=== PATIENT | male | born 2005 | race Caucasian/White ===

== ENCOUNTER 2024-03-03 12:14 | Emergency (ER) | payer OTHER, SELFPAY ==
[2024-03-03 12:21] VITALS: BP 142/86; PULSE 95; RESP 19; TEMP 36.6; O2SAT 98; BMI 37.4
--- NOTE | 2024-03-03 12:21 | ED_ITS ---
HPI - Extremity Injury (Lower) General Chief Complaint: Extremity Injury, Lower Stated Complaint: L toe infected? Time Seen by Provider: 03/03/24 12:26 Source: patient Mode of arrival: ambulatory Limitations: no limitations History of Present Illness HPI Narrative: Patient is a 18-year-old male who presents emergency department for intermittent swelling and bleeding to L great toe over past few months. Reports frequent stubbing of the toe accidently. Denies hx DM. Related Data Previous Rx's ?Medication ?Instructions ?Recorded cephalexin 500 mg capsule 500 mg PO QID #28 caps 03/03/24 Allergies Allergy/AdvReac Type Severity Reaction Status Date / Time No Known Allergies Allergy Verified 03/03/24 12:22 Review of Systems Review of Systems: Yes all other systems are reviewed and are negative [facility] Past Medical History Attestation statement: The following information was validated with the patient. Source: old records reviewed Social History Social History Advance Directives: No Advance Directives Information Provided: Yes Physical Exam Vital Signs: Vital Signs: Last Vital Signs Temp 98 F 03/03/24 12:21 Pulse 95 03/03/24 12:21 Resp 19 03/03/24 12:21 BP 142/86 H 03/03/24 12:21 Pulse Ox 98 03/03/24 12:21 O2 Del Method Room Air 03/03/24 12:21 BMI result Body Mass Index 37.4 Appearance: Alert.?Oriented to person, place and time. No acute distress.?Normal affect. Neck: Normal inspection.? Neck supple.?? CVS: Heart sounds normal. Normal heart rate and rhythm.? Pulses normal.?? Respiratory: No respiratory distress.? Lung sounds clear to auscultation bilaterally??? Skin: Skin warm and dry.? Normal skin color.? Extremities: No lower extremity edema.? No calf ttp. L great toe with mild erythema along the distal medial nail fold without abscess Neuro: Moves all extremities spontaneously. Sensation intact bilaterally. Ambulates with normal steady gait. Medical Decision Making Medical Decision Making MDM Narrative: Patient is a 18-year-old male who presents emergency department for evaluation of intermittent erythema and swelling to the left great toe. Expressed concern for possible ingrown nail. On physical examination does not appear to have ingrown nail, rather paronychia without any acute drainable abscess. Given its recurrence, will trial course of antibiotics, and advised patient to consider use of steel toe shoes especially while at work to prevent frequent stabbing injury which can result in traumatic paronychia. At this time not consistent with deeper space infection, fanta cook. Stable for discharge and outpatient follow-up with his primary care provider. Differential Diagnosis Differential Diagnoses: The differential diagnosis associated with the presentation includes (See narrative above) Prescription Management I considered prescription management with: Pain Medication (Acetaminophen/ibuprofen) and Antibiotic Discharge Plan Discharge Clinical Impression: Paronychia of great toe, left Patient Disposition: Home, Self-Care Instructions: Paronychia (ED) Prescriptions: New cephalexin 500 mg capsule 500 mg PO QID Qty: 28 0RF Referrals: Physician,None [Primary Care Provider] - Stand Alone Forms: Work/School Release Print Language: South Korean
[2024-03-03 12:36] VITALS: BP 142/86; PULSE 95; RESP 18; TEMP 36.6; O2SAT 98
== END 2024-03-03 12:38 | disposition home or self-care (01) ==
PROVIDERS: Emergency Provider Emergency Medicine
DX: L03.032 Cellulitis of left toe (principal); E11.9 Type 2 diabetes mellitus without complications
CPT/HCPCS: 99282; 99283

== ENCOUNTER 2024-05-18 12:51 | Emergency (ER) | payer OTHER, SELFPAY ==
[2024-05-18 12:56] VITALS: BP 149/83; PULSE 97; RESP 18; TEMP 36.6; O2SAT 98; BMI 42.0
--- NOTE | 2024-05-18 12:56 | ED_ITS ---
HPI - Extremity Injury (Lower) General Chief Complaint: Extremity Injury, Lower Stated Complaint: L Foot Pain Time Seen by Provider: 05/18/24 13:01 Source: patient Mode of arrival: ambulatory Limitations: no limitations History of Present Illness HPI Narrative: Patient is a 18-year-old male who presents to the emergency department for evaluation for work current infection to the left great toe, adjacent to the [facility] bed. There is active pus drainage, increasing pain and redness. He reports a recurrent injury and stopping of the toe due to his work environment. He states he was seen here couple of months ago, he never took the antibiotics as previously prescribed because there was issues with insurance coverage at the pharmacy. He denies fevers chills. No history of diabetes. Related Data Previous Rx's ?Medication ?Instructions ?Recorded cephalexin 500 mg capsule 500 mg PO QID #28 caps 03/03/24 cephalexin 500 mg capsule 500 mg PO QID #28 caps 05/18/24 Allergies Allergy/AdvReac Type Severity Reaction Status Date / Time No Known Allergies Allergy Verified 05/18/24 12:59 Review of Systems Review of Systems: Yes all other systems are reviewed and are negative [facility] Past Medical History Attestation statement: The following information was validated with the patient. Source: old records reviewed Physical Exam Vital Signs: Vital Signs: Last Vital Signs Temp 98 F 05/18/24 12:56 Pulse 97 05/18/24 12:56 Resp 18 05/18/24 12:56 BP 149/83 H 05/18/24 12:56 Pulse Ox 98 05/18/24 12:56 O2 Del Method Room Air 05/18/24 12:56 BMI result Body Mass Index 42.0 Appearance: Alert.?Oriented to person, place and time. No acute distress.?Normal affect. Neck: Normal inspection.? Neck supple.?? CVS: Heart sounds normal. Normal heart rate and rhythm.? Pulses normal.?? Respiratory: No respiratory distress.? Lung sounds clear to auscultation bilaterally??? Skin: Skin warm and dry.? Normal skin color.? Extremities: No lower extremity edema.? No calf ttp. L great toe with mild erythema along the distal medial nail fold without abscess Neuro: Moves all extremities spontaneously. Sensation intact bilaterally. Ambulates with normal steady gait. Medical Decision Making Medical Decision Making MDM Narrative: Patient is a 18-year-old male who presents emergency department for evaluation of intermittent erythema and swelling to the left great toe. Expressed concern for possible ingrown nail. On physical examination does not appear to have ingrown nail, rather paronychia without any acute drainable abscess. Given its recurrence, will trial course of antibiotics, and advised patient to consider use of steel toe shoes especially while at work to prevent frequent stabbing injury which can result in traumatic paronychia. At this time not consistent with deeper space infection, joey, fanta porras. Stable for discharge and outpatient follow-up with his primary care provider. Differential Diagnosis Differential Diagnoses: The differential diagnosis associated with the presentation includes (See narrative above) Tests considered The following testing was considered but not selected: Considered XR, full range of motion, do not suspect acute fracture. Prescription Management I considered prescription management with: Antibiotic Discharge Plan Discharge Clinical Impression: Paronychia of great toe of left foot Patient Disposition: Home, Self-Care Instructions: Paronychia (ED) Additional Instructions: As discussed, it is important that you take the course of antibiotics as prescribed for the infection to your toe. Follow-up with your primary care provider, if you continue to have persistent issues, and consider referring you to a [place] management specialist; a ammunition storage superintendent. Prescriptions: New cephalexin 500 mg capsule 500 mg PO QID Qty: 28 0RF No Action cephalexin 500 mg capsule 500 mg PO QID Qty: 28 0RF Referrals: Physician,None [Primary Care Provider] - Stand Alone Forms: Work/School Release Interventions: ED Discharge Assessment Last Done: 05/18/24 13:07 Print Language: Slovak
[2024-05-18 13:07] VITALS: BP 149/83; PULSE 97; RESP 18; TEMP 36.6; O2SAT 98
== END 2024-05-18 13:11 | disposition home or self-care (01) ==
PROVIDERS: Emergency Provider Student in an Organized Health Care Education/Training Program
DX: L03.032 Cellulitis of left toe (principal); M79.672 Pain in left foot
CPT/HCPCS: 99282; 99283

== ENCOUNTER 2024-05-24 12:45 | Emergency (ER) | payer OTHER, SELFPAY ==
[2024-05-24 12:48] VITALS: BP 128/87; PULSE 89; RESP 18; TEMP 36.7; O2SAT 98; BMI 42.0
--- NOTE | 2024-05-24 12:48 | ED.GENADULT ---
HPI - General Adult General Chief complaint: Extremity Injury, Lower Stated complaint: foot pain Time Seen by Provider: 05/24/24 12:51 Source: patient Mode of arrival: ambulatory Limitations: no limitations History of Present Illness ED Provider: scarlett MANDEL narrative: Patient is a 18-year-old male presenting to the emergency department with complaint of ongoing paronychia to left great toe for the past 2 weeks. He was seen here on 05/18 and given a prescription for antibiotics. When he went to pick them up, the pharmacy said they did not have the prescription. He is also requesting a work note that he was seen here today. Denies changes, states the inflammation to his toe is the same. Denies fevers. Reports occasional bleeding. MD complaint: toe pain Onset (ago): week(s) Treatments prior to arrival: none Related Data Previous Rx's ?Medication ?Instructions ?Recorded cephalexin 500 mg capsule 500 mg PO QID #28 caps 03/03/24 cephalexin 500 mg capsule 500 mg PO QID #28 caps 05/18/24 cephalexin 500 mg capsule 500 mg PO QID #28 caps 05/24/24 Allergies Allergy/AdvReac Type Severity Reaction Status Date / Time No Known Allergies Allergy Verified 05/24/24 12:50 Review of Systems Review of Systems: As per HPI Yes all other systems are reviewed and are negative Constitutional: Constitutional: Reports as per HPI Physical Exam ED Vital Signs: Vital signs have been reviewed and appear to be correct. Blood pressure normal. Heart rate normal. Respiratory rate normal. Temperature normal. Oxygen saturation normal. Const General: cooperative, healthy appearing and no acute distress Orientation/consciousness: oriented to person, oriented to place, oriented to time and patient oriented x3 Limitations: no limitations HENWA Head: Yes normocephalic and Yes atraumatic Ears: external ears normal General nose exam: Normal external nose present Face and sinus: Yes face symmetric Mouth: oropharynx normal and moist mucous membranes Throat: Yes uvula midline Eyes Pupils: Equal, round and reactive pupils present Neck Neck: Yes normal visual inspection and Yes supple Resp Effort & Inspection: normal respiratory effort and able to speak in complete sentences Auscultation: clear to auscultation bilaterally Cardio Rate: regular rate Rhythm: regular rhythm Heart sounds: S1 normal heart sound present and S2 normal heart sound present GI Palpation (GI): Soft to palpation and nontender Auscultation: normoactive bowel sounds General: Yes no CVA tenderness Back/Spine/Pelvis Back: no CVA tenderness Skin General skin exam: elasticity normal and turgor normal Neuro General: oriented to person, oriented to place, oriented to time, patient oriented x3, moves all extremities, no focal motor deficits and CN's II-XI intact bilaterally Cranial nerves: Yes Equal, round and reactive pupils present Cognition (Neuro): normal cognition Extrem General: Yes full ROM, Yes no pedal edema and Yes no calf tenderness Ankle/foot/toe images: 1. erythema, swelling, tenderness Psych Mental Status: mental status grossly normal Affect: normal affect Thought process: Normal thought process present Medical Decision Making Medical Decision Making [facility] Narrative: Patient is a 18-year-old male presenting to the emergency department with complaint of ongoing paronychia to left great toe for the past 2 weeks. On exam patient is awake, A+Ox3, VS WNL, afebrile, normal neurological exam without focal deficits, physical exam findings as above. Given reported symptoms and physical exam findings, initial differential includes paronychia, cellulitis. Discussed with patient that there was likely an issue with his prescription being transmitted to the pharmacy due to a [employer] issue. Will resend prescription for keflex, advised patient to soak foot in warm salt water. Follow up with PCP. Return precautions discussed. Patient verbalized understanding of and agreement with plan. Differential Diagnosis Differential Diagnoses: The differential diagnosis associated with the presentation includes as per [facility] External Record Review External record reviewed: Inpatient record, Office record and Outpatient record Prescription Management I considered prescription management with: Antibiotic Discharge Plan Discharge Clinical Impression: Paronychia of great toe of left foot Patient Disposition: Home, Self-Care Instructions: Paronychia (ED) Additional Instructions: You have been evaluated in the emergency department today for skin infection near your nail, also known as a paronychia. Please take your prescribed antibiotics as directed for the full course of the medication. We recommend soaking your foot in warm salt water for 10 minutes at a time several times daily. You can use Tylenol or ibuprofen per package instructions every 6 hours as needed for pain. If necessary, you can alternate these medications so that you can take one medication every 3 hours. For instance, at noon take ibuprofen, then at 3:00 p.m. take Tylenol, then at 6:00 p.m. take ibuprofen. Please schedule an appointment for follow-up with your primary care physician as soon as possible. Return to the emergency department if you experience recurrent vomiting, fevers greater than 100.4? F, increasing area of redness, warmth around the area, foul-smelling discharge from the area, increased tenderness around the area, or any other concerning symptoms. Prescriptions: New cephalexin 500 mg capsule 500 mg PO QID Qty: 28 0RF No Action cephalexin 500 mg capsule 500 mg PO QID Qty: 28 0RF cephalexin 500 mg capsule 500 mg PO QID Qty: 28 0RF Stand Alone Forms: Work/School Release Print Language: Belarusian
== END 2024-05-24 13:18 | disposition home or self-care (01) ==
LOC: HO.ED 13:17
PROVIDERS: Emergency Provider Emergency Medicine
DX: L03.032 Cellulitis of left toe (principal); M79.675 Pain in left toe(s)
CPT/HCPCS: 99281; 99283